=== PATIENT | male | born 1950 | race Hispanic/Latino ===

== ENCOUNTER → 2022-08-06 | Outpatient (CLI) | payer MEDICARE | LOC: US 11:37 | PROVIDERS: ATTEND Family Medicine | DX: E04.1 Nontoxic single thyroid nodule (principal) | CPT/HCPCS: 76536 ==

== ENCOUNTER → 2024-09-04 | Outpatient (REF) | payer MEDICARE | LOC: US 14:40 | PROVIDERS: ATTEND Specialist/Technologist, Other Surgical Technologist | DX: E04.1 Nontoxic single thyroid nodule (principal) | CPT/HCPCS: 76536 ==